=== PATIENT | female | born 1945 | race Caucasian/White ===

== ENCOUNTER 2019-09-26 11:50 | Emergency (ER) | payer MEDICARE, BC ==
[2019-09-26 12:09] VITALS: BP 157/86; PULSE 95; O2SAT 94
--- NOTE | 2019-09-26 12:26 | ERPHSYRPT ---
- History of Present Illness Time Seen by Provider: 09/26/19 12:10 Patient Subjective Stated Complaint: Fall Triage Nursing Assessment: Patient ambulated back to ED and transferred self to bed. Patient A+O x3. Patient's skin pink, warm and dry. Patient complains of a fall. Patient was walking into her appointmetn at [facility] when she was stepping up on to the curb and fell backwards hitting her head on concrete. Patient has small hematoma noted to left side of back of head. Patient denies head pain. Patient has abrasion to left elbow that hurts 3/10. Patient states she denies being dizzy and nauseas. Patient states she just tripped while walking. Physician History: Patient is a 73-year-old female presents to our ED for evaluation status post fall. Patient was attempting to a stand steps when she fell backwards. Patient hit her head on a concrete. Patient was placed in a wheelchair by staff and brought to our ED for evaluation. Patient states she feels well at this time. No headache. No nausea or vomiting. Patient has no joint pain. Patient is ambulatory with a normal gait. Patient declining work-up. Patient states she currently has an appointment scheduled with Dr. Devlin at noon. Although it is past her appointment time patient wants to see Dr. Devlin today. Dr. Devlin is patient's dial maker. Patient denies chest pain. No nausea no vomiting. No diarrhea. No rash. No numbness tingling or weakness. Patient is not on blood thinners. Patient lives with family. Patient's daughter at bedside. Patient declined any work-up and is requesting discharge. Occurred: just prior to arrival Reason for Fall: lost balance Injuries/Pain Location: head (Patient has a small posterior scalp hematoma.) Loss of Consciousness: no loss of consciousness Quality: other (Denies pain.) Severity of Pain-Max: mild Severity of Pain-Current: none Modifying Factors: Improves With: nothing Associated Symptoms (Fall): No denies symptoms, No abdominal pain, No back pain, No confusion, No chest pain, No dizziness, No extremity injury, No headache, No lightheadedness, No muscle spasms, No nausea, No neck pain, No ringing in ears, No seizures, No shortness of breath, No slurred speech, No trouble walking, No vomiting, No vision changes, No other (Fall was not associated with any sort of neuro cardiovascular symptomology.) Allergies/Adverse Reactions: No Known Drug Allergies Allergy (Unverified 09/26/19 12:01) Hx Tetanus, Diphtheria Vaccination/Date Given: No Hx Influenza Vaccination/Date Given: Yes Hx Pneumococcal Vaccination/Date Given: Yes Immunizations Up to Date: Yes Travel Risk - International Travel Have you traveled outside of the country in past 3 weeks: No - Coronavirus Screening Are you exhibiting any of the following symptoms?: No Close contact with a COVID-19 positive Pt in past 14-21 Days: No - Review of Systems Constitutional: No Symptoms, No Fever, No Chills Eyes: No Symptoms Ears, Nose, & Throat: No Symptoms Respiratory: No Symptoms, No Cough, No Dyspnea Cardiac: No Symptoms, No Chest Pain, No Edema, No Syncope Abdominal/Gastrointestinal: No Symptoms, No Abdominal Pain, No Nausea, No Vomiting, No Diarrhea Genitourinary Symptoms: No Symptoms, No Dysuria Musculoskeletal: No Symptoms, No Back Pain, No Neck Pain Skin: No Symptoms, No Rash Neurological: No Symptoms, No Dizziness, No Focal Weakness, No Sensory Changes Psychological: No Symptoms Endocrine: No Symptoms Hematologic/Lymphatic: No Symptoms Immunological/Allergic: No Symptoms All Other Systems: Reviewed and Negative - Past Medical History Pertinent Past Medical History: Yes Neurological History: No Pertinent History ENT History: Glaucoma Cardiac History: High Cholesterol Respiratory History: No Pertinent History Endocrine Medical History: Hypothyroidism Musculoskeletal History: No Pertinent History GI Medical History: No Pertinent History History: No Pertinent History Psycho-Social History: No Pertinent History Female Reproductive Disorders: No Pertinent History - Past Surgical History Past Surgical History: Yes Neuro Surgical History: No Pertinent History Cardiac: CABG Respiratory: No Pertinent History Gastrointestinal: No Pertinent History Genitourinary: No Pertinent History Musculoskeletal: No Pertinent History Female Surgical History: Section, Other Other Surgical History: Breast surgery to remove benign tumor 50 years ago - Social History Smoking Status: Never smoker Exposure to second hand smoke: No Drug Use: none Patient Lives Alone: No - Female History Hx Now: No - Nursing Vital Signs Nursing Vital Signs: Initial Vital Signs Pulse Rate 95 H 09/26/19 12:01 Respiratory Rate 18 09/26/19 12:01 Blood Pressure 157/86 09/26/19 12:01 O2 Sat by Pulse Oximetry 94 L 09/26/19 12:01 Pain Scale Pain Intensity 3 - Maunie Coma Score Best Eye Response (Rosmery): (4) open spontaneously Best Verbal Response (Maunie): (5) oriented Best Motor Response (Maunie): (6) obeys commands Rosmery Total: 15 - Physical Exam General Appearance: no apparent distress, alert Head Injury: no evidence of injury Eye Exam: PERRL/EOMI ENT Exam: airway nml Neck Exam: supple, normal inspection, No tenderness Respiratory/Chest Exam: normal breath sounds, No chest tenderness, No respiratory distress Cardiovascular Exam: normal heart sounds, regular rate/rhythm Gastrointestinal Exam: soft, No tenderness, No distention, No guarding, No ecchymosis Back Exam: normal inspection, No vertebral tenderness Extremity Exam: normal inspection, normal range of motion, pelvis stable, No deformities Peripheral Pulses: dorsalis-pedis (R): 2+, dorsalis-pedis (L): 2+ Neurologic Exam: alert, oriented x 3, cooperative, sensation nml, No motor deficits, No sensory deficit, No disoriented, No confusion, No agitation, No uncooperative, No intoxicated appearance, No depressed mood/affect, No motor weakness, No facial droop, No slurred speech, No aphasia, No dysarthria Skin Exam: normal color, warm, dry SpO2 Interpretation: borderline oxygenation SpO2: 94 O2 Delivery: Room Air - Course Nursing assessment & vital signs reviewed: Yes - Progress Progress: improved Progress Note: 09/26/19 12:31 Patient reassessed. Repeat neuro exam within normal limits. Patient feels well. Patient ambulated in our ED. Patient does not want work-up performed today. Risks and benefits of treatments offered discussed. Patient declined. Patient states she will return if she develops any new or worsening concerning symptoms. Patient daughter at bedside understands and agrees with plan of care. Counseled pt/family regarding: diagnosis, need for follow-up - Departure Departure Disposition: Home Clinical Impression: Fall, Scalp hematoma Condition: Stable Critical Care Time: No Referrals: Queta LE [Primary Care Provider] - Additional Instructions: Discharge/Care Plan TATYPATRICIO WHITNEY was seen on 09/26/19 in the Emergency Room. The patient was counseled regarding Diagnosis,Lab results, Imaging studies, need for follow up and when to return to the Emergency Room. Prescriptions given: Discharge Note I have spoken with the patient and/or caregivers. I have explained the patient's condition, diagnosis and treatment plan based on the information available to me at this time. I have answered the patient's and/or caregiver's questions and addressed any concerns. The patient and/or caregivers have as good understanding of the patient's diagnosis, condition and treatment plan as can be expected at this point. The vital signs have been stable. The patient's condition is stable and appropriate for discharge from the emergency department. The patient will pursue further outpatient evaluation with the primary care physician or other designated or consulting physician as outlined in the discharge instructions. The patient and/or caregivers are agreeable to this plan of care and follow-up instructions have been explained in detail. The patient and/or caregivers have received these instruction. The patient/and or caregivers are aware that any significant change in condition or worsening of symptoms should prompt an immediate return to this or the closest emergency department or call 911.
== END 2019-09-26 12:46 | disposition home or self-care (01) ==
LOC: ED 11:50
DX: S00.03XA Contusion of scalp, initial encounter (principal)
CPT/HCPCS: 99283